=== PATIENT | female | born 1985 | race Caucasian/White ===

== ENCOUNTER → 2022-11-27 10:02 | Outpatient (REF) | payer OTHER, SELFPAY | LOC: RAD 10:02 | PROVIDERS: ATTENDING PHYSICIAN Emergency Medicine | DX: N85.8 Other specified noninflammatory disorders of uterus (principal) | CPT/HCPCS: 76830 ==

== ENCOUNTER → 2024-03-30 10:14 | Outpatient (REF) | payer OTHER, SELFPAY | LOC: RCS 10:14 | PROVIDERS: ATTENDING PHYSICIAN Student in an Organized Health Care Education/Training Program; FAMILY PHYSICIAN Emergency Medicine | DX: R00.2 Palpitations (principal) | CPT/HCPCS: 93306 ==

== ENCOUNTER 2024-12-13 16:34 | Emergency (ER) | payer OTHER, SELFPAY ==
[2024-12-13 16:37] VITALS: BP 167/97
[2024-12-13 17:06] LABS: Hematocrit 39.4 % (37.0-47.0); Hemoglobin 13.8 g/dL (12.0-16.0); Mean Corp Hgb Conc. 35.0 g/dL (33.0-37.0); Mean Corpuscular Volume 91.6 fL (81.0-99.0); Nucleated Red Blood Cells % 0 %; Platelet Count 299 10^3/uL (130-400); Red Cell Dist. Width 11.4 % (11.5-14.5)
[2024-12-13 17:20] LABS: ALT (SGPT) 42 U/L (0-35); AST (SGOT) 28 U/L (14-36); Albumin 4.1 g/dl (3.5-5.0); Alkaline Phosphatase 56 U/L (38-126); Blood Urea Nitrogen 14 mg/dl (7-17); Calcium 9.7 mg/dl (8.4-10.2); Carbon Dioxide 29 mmol/L (22-30); Chloride 104 mmol/L (98-107); Glucose 110 mg/dl (70-99); Potassium 4.3 mmol/L (3.5-5.1); Sodium 137 mmol/L (135-145); Total Protein 7.1 g/dl (6.3-8.2); eGFR > 60.00
[2024-12-13 17:23] VITALS: BP 170/110
[2024-12-13 19:34] LABS: TSH 4.37 uIU/ml (0.47-4.68)
[2024-12-13 19:40] VITALS: BP 157/103
[2024-12-13 19:42] VITALS: BP 147/96
--- NOTE | 2024-12-13 22:08 | ED.GENMED ---
History of Present Illness
General
Chief Complaint: Blood Pressure Problem
Source: patient
Exam Limitations: none
Time Seen by Provider: 12/13/24 17:24
Nursing documentation reviewed up to this point in time: agreed with
History of Present Illness
History of Present Illness:
Patient states she went to her dentist for a cleaning and was told her BP was elevated. Advised to come to ED. She has a history of Jt thyroiditis and states when her TSH is elevated, her blood pressure elevates. Brought eslf to ED for eval
Past History
Past History
ED Past Medical History: Other (Jt's thyroiditis, migraines)
ED Past Surgical History: None
Social History
Tobacco: Non-smoker
Alcohol: None
Drug: None
Personal: Single
Living: alone
Employment: Employed
Review of Systems
Review of Systems
Allergies reviewed?: Yes
All Other Systems: ROS reviewed and negative except as documented in HPI and ROS
Constitutional: Reports no symptoms
EENT: Reports no symptoms
Respiratory: Reports no symptoms
Cardiac: Reports other (elevated BP readings)
ABD/GI: Reports no symptoms
: Reports no symptoms
Musculoskeletal: Reports no symptoms
Skin: Reports no symptoms
Neurological: Reports no symptoms
Psychiatric: Reports no symptoms
Phy Exam
General Physical Exam
General Presentation: well appearing and no apparent distress
General age: appears stated age
General Skin: warm and dry
General Habitus: normal
General Mental: alert
Cardiovascular Exam
Cardiovascular Exam: regular rate/rhythm and no edema
Pulmonary Exam
Pulmonary Exam: lungs clear and no respiratory distress
Musculoskeletal Exam
Musculoskeletal Exam: full ROM and neuro vasc intact
Skin Exam
Skin Exam: normal color, warm/dry and no rash
Psychiatric Exam
Psychiatric Exam: normal mood/affect
Course
Orders/Labs/Results
Orders:
Orders
12/13/24 16:40
Electrocardiogram (*1) Urgent
Reason for Study: Hypertension, Benign
EKG- Treatment ONCE
12/13/24 16:56
Complete Blood Count/With Diff Urgent
Comprehensive Metabolic Panel Urgent
TSH Urgent
Total Thyroxine Urgent
Comment: ADDON
12/13/24 18:20
Add On- LAB Urgent
Tests Added?: free T4
Abnormal Lab Results
12/13/24
16:56
MCH 32.1 H pg
(27.0-31.0)
RDW 11.4 L %
(11.5-14.5)
Glucose 110 H mg/dl
(70-99)
ALT 42 H U/L
(0-35)
12/13/24 16:56
12/13/24 16:56
Vital Signs
Initial and Last Documented VS:
Initial Vital Signs
Temp Pulse Resp BP Pulse Ox
98.0 F 89 16 167/97 98
12/13/24 16:37 12/13/24 16:37 12/13/24 16:37 12/13/24 16:37 12/13/24 16:37
Last Documented Vital Signs
Temp Pulse Resp BP Pulse Ox
98.0 F 81 18 147/96 98
12/13/24 16:37 12/13/24 17:23 12/13/24 17:23 12/13/24 19:42 12/13/24 22:10
*Pulse Oximetry
SaO2: 98
Oxygen Mode of Delivery: Room air
Patient hypoxic: no
*Critical Care Note
Total Time (30-74mins, 75-104mins- exclusive of procedures): Not Applicable
Update Note
Update Note:
Patient sent to ED by dentist for elevated BP readings while in office Patient feels that elevated readings may be due to elevated TSH, states this has happened in the past. TSH normal tonight 4.37, T4 9.40. She reports compliance with her
synthroid. BP running 150's/90's while in ED. No associated symptoms. She will continue to monitor BP readings at home and follow up this week with PCP. She is discharged home, given insructions on s/s to return to ED and she is agreeable to plan.
ED Attending Note
-
Portions of this chart may have been created with voice recognition software.� Occasional wrong word or��sound alike� substitutions may have occurred due to the inherent limitations of voice recognition software.
Discharge Plan
Departure
Patient Disposition: Home (Routine Discharge)
Date of Disposition: 12/13/24
Time of Disposition: 19:42
Patient with high blood pressure during this ER visit?: No
Condition: Good
Covid-19: Not Applicable
Discharge Problem:
Elevated blood pressure reading without diagnosis of hypertension
Instructions: BLOOD PRESSURE
Prescriptions:
No Action
ibuprofen 600 MG tablet
600 mg PO Q8HPRN PRN (Reason: joint pain) 5 Days Qty: 20 0RF
Referrals:
Caren Dunaway MD [Family Provider, Internal Medicine] - Tomorrow
Activity Restrictions/Additional Instructions:
Follow up with your family doctor. Please check and record your blood pressure randomly over the next week, share with your family doctor. Return to the emergency department immediately for any changes in/worsening of your symptoms..
Interventions
Interventions:
*Risk Screen - Suicide Last Done: 12/13/24 16:37
*General Assessment Last Done: 12/13/24 19:15
*Neglect/Abuse Screening Last Done: 12/13/24 16:37
*Nursing Disposition Last Done: 12/13/24 19:51
ED- Cardiac Assessment Last Done: 12/13/24 17:23
ED- Neurological Assessment Last Done: 12/13/24 17:23
ED- Pulmonary Assessment Last Done: 12/13/24 17:23
Discharge Date and Time
Discharge Date/Time: 12/13/24 19:51
Print Language: [id number]
== END 2024-12-13 19:51 | disposition home or self-care (01) ==
LOC: EMR 16:34
PROVIDERS: Emergency Medicine; EMERGENCY PHYSICIAN Student in an Organized Health Care Education/Training Program; FAMILY PHYSICIAN Emergency Medicine
DX: R03.0 Elevated blood-pressure reading, without diagnosis of hypertension (principal); E06.3 Autoimmune thyroiditis; Z86.16 Personal history of COVID-19
CPT/HCPCS: 99283; 80053; 84436; 84443; 85025; 93005